=== PATIENT | male | born 1960 | race Caucasian/White ===

== ENCOUNTER → 2019-08-03 10:10 | Outpatient (CLI) | payer BC ==
[~2019-08-03 10:10] MED LIST: BAYER CHEWABLE81 MG PO; HYDROCODON-ACE1 EA10 PO; HYDROXYZINE HCL50 MG PO; KLONOPIN1 MG PO; OXYCODONE HCL5 M1 PO; POTASSIUM99 M1 PO; TORADOL10 MG PO; ZOFRAN ODT4 MG/UDTAB PO
[2019-08-11 23:39] VITALS: BMI 26.5
== END | disposition home or self-care (01) ==
LOC: D.CT 10:00
PROVIDERS: ATTEND Orthopaedic Surgery
DX: S82.302A Unspecified fracture of lower end of left tibia, initial encounter for closed fracture (principal)

== ENCOUNTER 2019-08-11 11:56 | Day surgery (SDC) | payer BC ==
[~2019-08-11] VITALS: Ht 180.3 cm; Wt 86.4 kg
[~2019-08-11 11:56] MED LIST changes: -BAYER CHEWABLE81 MG PO; -OXYCODONE HCL5 M1 PO; -POTASSIUM99 M1 PO; -TORADOL10 MG PO; -ZOFRAN ODT4 MG/UDTAB PO
[2019-08-11 13:24] VITALS: BP 135/85; BMI 26.5
[2019-08-11 22:59] VITALS: BP 145/85
[2019-08-11] MEDS ORDERED: POTASSIUM99 M1 PO (23:05)
--- NOTE | 2019-08-11 23:27 | NUR ---
ARRIVED TO ROOM 2207 AT 2300 VIA HOSPITAL STAFF, TRANSFERRED TO BED WITH MAXIMAL ASSIST, ALERT AND ORIENTED, SLOW TO RESPOND AT FIRST, BUT AT THIS TIME, HE IS ALERT AND CONSUMING NUTRITION VIA FAMILY MEMBER ASSISTANCE. STATES HIS FOOT FEELS HEAVY, PILLOWS PLACED TO HELP ELEVATE. NO PAIN AT THIS TIME. WILL NOTE ANY CHANGE.
[2019-08-11 23:39] VITALS: BP 141/88; Ht 180.3 cm; Wt 86.4 kg
[2019-08-12 00:10] VITALS: BP 132/92
--- NOTE | 2019-08-12 01:25 | NUR ---
COMPLAINTS OF PAIN TO LLE, MEDICATION GIVEN PER ORDERS. PT IS MORE ALERT AND ABLE TO VOICE MOST NEEDS, STILL HAS NOT VOIDED, BUT HAS DRANK 360MLS AT THIS TIME. HAS ALSO CONSUMED NUTRITION WITH NO S/S OF ANY NAUSEA. LLE IS ELEVATED VIA PILLOWS AND BLANKET TO HELP HOLD PILLOWS IN PLACE. ICE PACK TIMES TWO APPLIED TO SIDES OF EXTREMITY. WILL NOTE ANY CHANGE.
--- NOTE | 2019-08-12 02:44 | NUR ---
ATTMEPTED TO VOID, HAD URGES BUT WAS UNSUCCESSFUL, HAD PAIN TO LLE DURING THIS TIME. WILL TRY AGAIN AND CONTINUE TO HYDRATE AND KEEP LLE ELEVATED.
--- NOTE | 2019-08-12 03:42 | NUR ---
VOIDED WITH NO DIFFICULTY.
[2019-08-12 04:00] VITALS: BP 132/78; BP 135/65
[2019-08-12 06:07] VITALS: BP 127/82
[2019-08-12 06:08] VITALS: BP 132/84
--- NOTE | 2019-08-12 06:38 | NUR ---
COMPLAINTS OF PAIN TO LLE, MEDICATION GIVEN PER ORDERS, IS IN JOYFUL MOOD AND LAUGHING WITH THIS NURSE AND LIFE. SHOWS NO S/S OF ANY OTHER DISTRESS, DOING INCENTIVE SPIROMETER WITH EASE. WILL NOTE ANY CHANGE.
[2019-08-12] MEDS ORDERED: HYDROXYZINE HCL50 MG PO (08:38)
[2019-08-12] MEDS ORDERED: ZOFRAN ODT4 MG/UDTAB PO (08:39)
[2019-08-12] MEDS ORDERED: OXYCODONE HCL5 M1 PO (08:39)
[2019-08-12] MEDS ORDERED: TORADOL10 MG PO (08:39)
[2019-08-12] MEDS ORDERED: BAYER CHEWABLE81 MG PO (08:40)
--- NOTE | 2019-08-12 08:47 | OP ---
PATIENT NAME: RITA MOE MEDICAL RECORD: [id number] LOCATION:[id number] ADMISSION DATE:08/11/19 SURGEON: LUCIO STARK DO DATE OF OPERATION: 08/11/2019 PROCEDURE PERFORMED: Left ankle open reduction and internal fixation. PREOPERATIVE DIAGNOSIS: Left ankle closed displaced trimalleolar fracture. POSTOPERATIVE DIAGNOSIS: Left ankle closed displaced trimalleolar fracture. INDICATIONS: Mr. Moe is a 59-year-old male who fell when hunting approximately 2 weeks ago and he tried to get out of the luis by himself. He eventually gotten back to his car, went to an urgent care and was seen to have what appeared to be a bimalleolar ankle fracture. Came to my clinic the next Saturday and took him for a CT and it showed a trimalleolar fracture, long oblique fracture of the fibula, and there is a posteromedial malleolus fracture with a vertical shear and then a posterior mallet fracture of less than 25% of the joint surface. The patient was extremely swollen and he was wrapped up in a 2 x 2 dressing with Coban and a Luna Glass dressing. I then checked him a week later and he is still too swollen and then finally this week, his skin was amenable to surgery. I informed him of the risks including infection, bleeding, damage to nerves and vessels, continued pain and inability to weightbear, blood clots, and even , nonunion, malunion. He signed the consent. SURGEON: Lucio Stark DO DESCRIPTION OF PROCEDURE: The patient was taken to the operative suite, laid in the supine position, given 2 grams of Ancef. The left lower extremity was prepped and draped. Prior to this, he was sedated and LMA was placed. Once he was prepped and draped, a timeout was performed, everyone was agreement as to the correct side, site, patient and procedure. Then, the left lower extremity was exsanguinated with an Esmarch and tourniquet was inflated to 350 mmHg, was up for 73 minutes. The lateral malleolus was addressed first. The incision was made along the lateral aspect of the ankle right along the fibula. Once the reduction was in adequate position, the plate was put on. The superficial peroneal nerve was retracted out of the way as it was encountered. The locking aspect was done first at the distal portion and then into the shaft. Once there was a good placement of the plate, the medial side was addressed. An incision was made in the posterior aspect of the medial malleolus where the vertical shear was. Careful dissection was made down to it. It was reduced, held in place with a K-wire. Then, a 4-hole plate was put in a buttress fashion with 3-holes above the fracture site used with the most distal hole holding the fracture reduced. The tourniquet was then let down and the wounds were irrigated. The wounds were closed with 3-0 Vicryl in an inverted interrupted fashion and the ZipLine was placed on both sides. It was then dressed with Adaptic, 4 x 4s and ABDs on the heel and then around the ankle and then dressed with cast padding, Kerlix dressing, and placed in a 4 x 30 splint and then sutured in place with 6-inch Son wrap. He was then awakened and taken to the recovery in stable condition. OPERATIVE REPORT [id number] RITA MOE Blood loss approximately 100 mL. COMPLICATIONS: None. TRANSINT:[id number] Voice Confirmation ID: [id number] DOCUMENT ID: [id number] LUCIO STARK DO at 0847 CC: [id number] DICTATION DATE: 08/11/192154 PILOT BOAT DECKHAND: 08/11/19 2312 ADM IN [facility] [address] [place] [address]
[2019-08-12 09:22] VITALS: BP 114/75
--- NOTE | 2019-08-12 11:15 | NUR ---
DISCHARGED PATIENT VIA WHEELCHAIR WITH ACCOMPANIED BY HOSPITAL STAFF. DISCONTINUED IV,CATHETER TIP INTACT. WENT OVER DISCHARGE INSTRUCTIONS WITH PATIENT AND , VERBALIZED UNDERSTANDING. DENIES ANYTHING FURTHER.
== END 2019-08-12 11:17 | disposition home or self-care (01) ==
LOC: OBSVTIME → D.OPS 11:56 → D.PAN 13:15 → D.OPS 14:00 → D.MS 22:38 → OBSVTIME 22:39 → D.OPS 22:39 → D.MS 22:39 → D.OPS 08-12 11:17
PROVIDERS: ATTEND Orthopaedic Surgery
DX: S82.852A Displaced trimalleolar fracture of left lower leg, initial encounter for closed fracture (principal); W19.XXXA Unspecified fall, initial encounter; Y93.89 Activity, other specified